=== PATIENT | female | born 1975 | race Caucasian/White ===

== ENCOUNTER 2023-09-14 05:42 | Emergency (ER) | payer OTHER, SELFPAY ==
[2023-09-14 05:59] VITALS: BP 146/79
--- NOTE | 2023-09-14 06:23 | ED.GENMED ---
History of Present Illness
General
Chief Complaint: Heart Rate Problem
Source: patient
Exam Limitations: none
Time Seen by Provider: 09/14/23 06:19
Nursing documentation reviewed up to this point in time: agreed with
History of Present Illness
History of Present Illness:
Patient without any significant past medical history, presents to ED secondary to persistent nausea and vomiting this morning. Patient reports attending [employer] where there was alcohol consumption involved, admittedly more than usual. Denies
dizziness. Denies chest pain or shortness of breath. Patient reports headache with abdominal discomfort. Denies diarrhea. Denies recent illness. Denies recent change in diet or medications.
Past History
Past History
ED Past Medical History: Other
ED Past Surgical History: None
Social History
Tobacco: Non-smoker
Review of Systems
Review of Systems
Allergies reviewed?: Yes
All Other Systems: ROS reviewed and negative except as documented in HPI and ROS
Constitutional: Reports no symptoms; Denies fever
Respiratory: Reports no symptoms
Cardiac: Reports palpitations
ABD/GI: Reports abdominal pain, nausea and vomiting; Denies diarrhea
Musculoskeletal: Reports no symptoms
Skin: Reports no symptoms
Neurological: Reports no symptoms
Phy Exam
Physical Exam
Physical Exam:
Physical Exam
General: mild distress, not acutely ill. afebrile
Head: nc/at. eomi
Neck: supple. no meningeal signs.
Heart: s1/s2 regular rate and rhythm, no murmur. equal radial pulses.
Lungs: no acute respiratory distress. clear bilaterally
Abdomen: normal bowel sounds. not tender.
Neuro: alert and oriented. no focal neurological deficits
Skin: no rash
Psychiatric: well kept. interactive and cooperative
Extremities: no edema. no calf tenderness.
Course
Orders/Labs/Results
Orders:
Orders
09/14/23 06:08
Electrocardiogram (*1) Urgent
Reason for Study: Abdominal Pain
EKG- Treatment ONCE
IV Insert/Care/Rem.- Treatment PRN
09/14/23 06:19
Ondansetron Injectable [Zofran] 4 mg .ROUTE .STK-MED ONE
09/14/23 06:23
Add On- LAB Urgent
Tests Added?: magnesium
09/14/23 06:27
0.9% Sodium Chloride 1000 ml [Nss] 1,000 ml IV BOLUS
Ondansetron Injectable [Zofran] 4 mg IV NOW STA
09/14/23 06:53
Complete Blood Count/With Diff Urgent
Comprehensive Metabolic Panel Urgent
Lipase Urgent
Magnesium Urgent
Comment: ADD ON
09/14/23 07:51
0.9% Sodium Chloride 500 ml [Nss] 500 ml IV BOLUS
Ondansetron Injectable [Zofran] 4 mg IV NOW STA
Abnormal Lab Results
09/14/23
06:53
RBC 3.93 L 10^6/uL
(4.20-5.40)
MCH 31.6 H pg
(27.0-31.0)
MCHC 32.9 L g/dL
(33.0-37.0)
MPV 10.5 H fL
(7.4-10.4)
Absolute Lymphs (auto) 1.1 L 10^3/uL
(1.2-3.4)
Lymphocytes % 19.5 L %
(20.5-51.1)
Carbon Dioxide 31 H mmol/L
(22-30)
09/14/23 06:53
09/14/23 06:53
Vital Signs
Initial and Last Documented VS:
Initial Vital Signs
Temp Pulse Resp BP Pulse Ox
97.6 F 78 20 146/79 99
09/14/23 05:59 09/14/23 05:59 09/14/23 05:59 09/14/23 05:59 09/14/23 05:59
Last Documented Vital Signs
Temp Pulse Resp BP Pulse Ox
97.8 F 96 19 95/62 97
09/14/23 07:27 09/14/23 09:15 09/14/23 09:15 09/14/23 09:00 09/14/23 09:00
MDM/Problems Addressed
MDM/Problems Addressed:
Patient reports significant improvement symptoms after treatment in ED, without any further vomiting episodes. Patient otherwise is afebrile, hemodynamically stable, and nontoxic-appearing, at time of discharge, to the care of her family. Patient
will be advised to continue hydration at home, along with bland diet. Advised PCP follow-up, or return to ED with worsening symptoms.
*Critical Care Note
Total Time (30-74mins, 75-104mins- exclusive of procedures): Not Applicable
ED Attending Note
-
Portions of this chart may have been created with voice recognition software.� Occasional wrong word or��sound alike� substitutions may have occurred due to the inherent limitations of voice recognition software.
Discharge Plan
Departure
Patient Disposition: Home (Routine Discharge)
Date of Disposition: 09/14/23
Time of Disposition: 09:16
Patient with high blood pressure during this ER visit?: No
Discharge Problem:
Alcoholic gastritis
Instructions: [place] Diet, Gastritis (DC)
Prescriptions:
New
ondansetron 4 mg Tablet,Disintegrating
4 mg PO TIDPRN PRN (Reason: nausea/vomiting) Qty: 12 0RF
Referrals:
UNKNOWN - PT DOES,NOT KNOW [Family Provider] -
Activity Restrictions/Additional Instructions:
As discussed, please follow-up with your primary care physician with any further concerns. Your prescription has been sent electronically to [facility] in [place].
Interventions
Interventions:
*Risk Screen - Suicide Last Done: 09/14/23 05:59
*General Assessment Last Done: 09/14/23 05:59
*Neglect/Abuse Screening Last Done: 09/14/23 05:59
ED- Fall Risk Assessment Last Done: 09/14/23 05:59
*ED COVID-19 Vaccine History Last Done: 09/14/23 05:59
*Nursing Disposition Last Done: 09/14/23 09:32
ED- Cardiac Assessment Last Done: 09/14/23 07:27
ED- Pulmonary Assessment Last Done: 09/14/23 07:27
Discharge Date and Time
Discharge Date/Time: 09/14/23 09:32
Print Language: MALTESE
[2023-09-14] MEDS: NSS 1000 IV (06:54)
[2023-09-14] MEDS: ZOFRAN 4 MG IV ×2 (06:54→08:03)
[2023-09-14 07:00] LABS: % Basophils 0.7 % (0-2); % Eosinophils 1.5 % (0-6); % Immature Granulocytes 0.2 % (0-0.5); % Lymphocytes 19.5 % (20.5-51.1); % Neutrophils 72.1 % (42.2-75.2); Absolute Eosinophils 0.1 10^3/uL (0-0.7); Absolute Lymphocytes 1.1 10^3/uL (1.2-3.4); Absolute Monocytes 0.3 10^3/uL (0.1-0.6); Hematocrit 37.7 % (37.0-47.0); Hemoglobin 12.4 g/dL (12.0-16.0); Mean Corp Hgb Conc. 32.9 g/dL (33.0-37.0); Mean Corpuscular Hgb 31.6 pg (27.0-31.0); Mean Corpuscular Volume 95.9 fL (81.0-99.0); Mean Platelet Volume 10.5 fL (7.4-10.4); Nucleated Red Blood Cells % 0 %; Platelet Count 185 10^3/uL (130-400); Red Blood Cell Count 3.93 10^6/uL (4.20-5.40); Red Cell Dist. Width 12.5 % (11.5-14.5); White Blood Cell Count 5.5 10^3/uL (4.8-10.8)
[2023-09-14 07:14] LABS: ALT (SGPT) 20 U/L (0-35); AST (SGOT) 32 U/L (14-36); Albumin 4.6 g/dl (3.5-5.0); Alkaline Phosphatase 100 U/L (38-126); Blood Urea Nitrogen 15 mg/dl (7-17); Calcium 9.4 mg/dl (8.4-10.2); Carbon Dioxide 31 mmol/L (22-30); Chloride 104 mmol/L (98-107); Glucose 97 mg/dl (70-99); Lipase 110 U/L (23-300); Potassium 4.1 mmol/L (3.5-5.1); Sodium 141 mmol/L (135-145); Total Bilirubin 0.5 mg/dl (0.2-1.3); Total Protein 7.2 g/dl (6.3-8.2); eGFR > 60.00
[2023-09-14 07:27] VITALS: BMI 23.6
[2023-09-14 07:28] VITALS: BP 118/81
[2023-09-14 08:00] VITALS: BP 101/61
[2023-09-14] MEDS: NSS 500 IV (08:04)
[2023-09-14 09:00] VITALS: BP 95/62
== END 2023-09-14 09:32 | disposition home or self-care (01) ==
LOC: EMR 05:42
PROVIDERS: EMERGENCY PHYSICIAN Emergency Medicine
DX: K29.20 Alcoholic gastritis without bleeding (principal)
CPT/HCPCS: 99284; 96374; 96376; 96361; 80053; 83690; 83735; 85025; 93005

== ENCOUNTER → 2024-06-26 11:44 | Outpatient (REF) | payer OTHER, SELFPAY | LOC: WDC 11:44 | PROVIDERS: ATTENDING PHYSICIAN Obstetrics & Gynecology; FAMILY PHYSICIAN Family Medicine | DX: Z12.31 Encounter for screening mammogram for malignant neoplasm of breast (principal) | CPT/HCPCS: 77063; 77067 ==

== ENCOUNTER 2024-07-07 06:25 | Day surgery (SDC) | payer OTHER, SELFPAY | END 2024-07-07 13:49 | disposition home or self-care (01) | LOC: GI 06:25 | PROVIDERS: ATTENDING PHYSICIAN Internal Medicine; FAMILY PHYSICIAN Family Medicine | DX: Z12.11 Encounter for screening for malignant neoplasm of colon (principal); K64.4 Residual hemorrhoidal skin tags; Z83.719 Family history of colon polyps, unspecified | CPT/HCPCS: G0121 ==